=== PATIENT | female | born 1935 | race Caucasian/White ===

== ENCOUNTER 2016-06-08 14:20 | Emergency (ER) | payer MEDICARE ==
[~2016-06-08] VITALS: Ht 154.9 cm; Wt 58.1 kg
[~2016-06-08 14:20] MED LIST: ALEN70TA5 PO; AMIO200T2 PO; ASPI81TA44 PO; CALC600T4 PO; CITA40TA5 PO; DICL100G7 TP; FOLI1TAB16 PO; FURO40TA4 PO; GABA-586 PO; HYDR-2666 PO; IMIP25TA3 PO; LIDO700A4 TP; MELA3TAB PO; MELO-150 PO; METH25VI27 IJ; MIRA50TA PO; MORP15TA3 PO; MULT-245 PO; OXYB15TA4 PO; OXYC10TA32 PO; PILO5TAB PO; POLY17PO5 PO; POTA10CA53 PO; PRED5TAB PO; SERT50TA8 PO; SIMV40TA3 PO; SOLI5TAB PO; SULF500T7 PO
[2016-06-08] MEDS ORDERED: ONDANSETRON PF 4 MG/2 ML VIAL. IV ONE (14:45)
[2016-06-08] MEDS ORDERED: FENTANYL PF 100 MCG/2 ML VIAL. IV PRN (14:45)
[2016-06-08 15:54] LABS: BASO # 0.1 x10^3/uL (0.0-0.2); BASO % 1 % (0-3); EOS % 1 % (0-3); HEMATOCRIT 30.2 % (36.0-47.0); HEMOGLOBIN 9.4 g/dL (12.0-15.5); LYMPH # 1.3 x10^3/uL (1.0-4.8); LYMPH % 16 % (24-48); MEAN CORPUSCULAR HEMOGLOBIN 26 pg (25-35); MEAN CORPUSCULAR HGB CONC 31 g/dL (31-37); MEAN CORPUSCULAR VOLUME 84 fL (79-100); MONO % 5 % (0-9); NEUT % 77 % (31-73); PLATELET COUNT 151 x10^3/uL (140-400); RED BLOOD COUNT 3.59 x10^6/uL (3.50-5.40); RED CELL DISTRIBUTION WIDTH 19.2 % (11.5-14.5); WHITE BLOOD COUNT 7.8 x10^3/uL (4.0-11.0)
--- NOTE | 2016-06-08 16:01 | RAD ---
INDICATION: fall, dizzy prior COMPARISON: 07/25/2015 FINDINGS: Single view of chest obtained. Calcifications overlying the heart, could be valvular calcifications. Cardiac silhouette is mildly prominent. No definite focal airspace consolidation. Scoliotic curvature of the spine with degenerative changes. IMPRESSION: No definite focal consolidation.
[2016-06-08 16:06] LABS: CALCIUM 9.3 mg/dL (8.5-10.1); CREATININE 0.9 mg/dL (0.6-1.0); GFR 60.1; POTASSIUM 4.9 mmol/L (3.5-5.1)
--- NOTE | 2016-06-08 16:09 | RAD ---
INDICATION: fall, multiple joint pain, left wrist deformity COMPARISON: None. IMPRESSION: Left elbow: 3 views obtained. Difficult examination secondary to patient positioning. At the dorsal aspect of the radial head there is a small step-off seen. This could be secondary to an osteophyte but if there is point tenderness within the region a fracture is possible. There is also lucency at the radial aspect of the radial head on one image but this appears to extend outside of the bone therefore may be overlap of structures.
[2016-06-08 16:11] LABS: ALBUMIN 3.8 g/dL (3.4-5.0); ALBUMIN/GLOBULIN RATIO 1.2 (1.0-1.7); MAGNESIUM 1.9 mg/dL (1.8-2.4); TOTAL BILIRUBIN 0.4 mg/dL (0.2-1.0)
--- NOTE | 2016-06-08 16:15 | RAD ---
INDICATION: fall, multiple joint pain, left wrist deformity COMPARISON: None. IMPRESSION: Left shoulder: 3 views obtained without dislocation. Lucency through superior aspect of the acromion on. Could be vascular channel or prominent trabecula but nondisplaced fracture not excluded. Right shoulder: 3 views obtained without definite acute fracture or dislocation. Degenerative changes are identified. Small ossific density adjacent to the right acromion on could be from old injury or degenerative.
[2016-06-08 16:20] LABS: CKMB INDEX 3.1 % (0-4); CKMB MASS 1.4 ng/mL (0.0-3.6)
--- NOTE | 2016-06-08 16:28 | RAD ---
INDICATION: fall, unknown LOC, neck pain, headache COMPARISON: CT head from 10/12/2014 TECHNIQUE: Axial CT images obtained through the head and cervical spine without intravenous contrast. FINDINGS: No intracranial hemorrhage. No midline shift. Basal cisterns patents. Ventricles and sulci are globally prominent. Wright white differentiation is maintained without evidence of acute ischemia to large vessel territory. No acute osseous abnormality. Wall thickening left maxillary sinus. Scattered foci of low attenuation within the white matter. Cervical spine: No definite acute fracture or dislocation. Degenerative changes are identified. Grade 1 anterolisthesis of C3 on 4. There is a region of probable pleural scarring at the right lung apex with some calcifications within. Multilevel neural foraminal and central canal narrowing with the most severe level central canal narrowing likely C2-3 with a disc protrusion causing severe central canal narrowing and mass effect on spinal cord IMPRESSION: 1. No acute intracranial hemorrhage. 2. Scattered regions of low attenuation within the white matter. Non-specific in nature but frequently secondary to chronic small vessel ischemic disease. 3. Prominence of ventricles and sulci which is frequently secondary to age related volume loss. 4. Degenerative changes of the spine without definite acute fracture. 5. Suspected disc protrusion at C3-4 causing severe central canal narrowing and mass effect on spinal cord. Follow-up cervical spine MRI could be obtained to further evaluate 6. 5 mm nodule in left upper lung. If the patient has risk factors for neoplasm a follow-up CT could be obtained in 6-12 months to ensure no growth. PQRS Compliance Statement: One or more of the following individualized dose reduction techniques were utilized for this examination: 1. Automated exposure control 2. Adjustment of the mA and/or kV according to patient size 3. Use of iterative reconstruction technique
--- NOTE | 2016-06-08 16:28 | EKG ---
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
--- NOTE | 2016-06-08 16:31 | RAD ---
Bilateral wrists, 6 views, 06/08/2016: History: Fall, wrist deformities The bony structures are demineralized. There is deformity of the distal left radius compatible with old healed fracture. There is an old nonunited ulnar styloid fracture. There are moderate degenerative changes at the wrist. No acute fracture or dislocation is evident. There is an old, internally fixed, healed distal right radial fracture. There is an old right ulnar styloid fracture. There is considerable degenerative change at the right first CMC joint with periarticular calcifications. No acute right wrist fracture or dislocation is identified. IMPRESSION: 1. Bilateral wrist fractures. 2. Moderate degenerative change at both wrists. 3. No acute bony abnormality is detected.
--- NOTE | 2016-06-08 16:33 | RAD ---
INDICATION: fall, multiple joint pain, left wrist deformity COMPARISON: 07/25/2015 IMPRESSION: Right hip: 3 views obtained. Step-offs at the left superior and inferior pubic ramus. Likely secondary to the patient's known old fractures through the region with callus formation Partial visualization of hardware within the distal femur. Postoperative changes to lower lumbar spine partially seen. Calcific atherosclerosis. No definite right hip fracture.
--- NOTE | 2016-06-08 16:40 | PHYS DOC ---
Past Medical History Past Medical History: A-Fib, Anxiety, Arthritis, CHF, Constipation, Dementia, Depression, High Cholesterol, Pneumonia, Other Additional Past Medical Histor: chronic pain, rheumatoid arthritis, dry mouth, rls, insomnia, Past Surgical History: , Knee Replacement Additional Past Surgical Histo: multiple knee, back Additional Information: nonsmoker Alcohol Use: None Drug Use: None Adult General Chief Complaint Chief Complaint: WRIST PAIN HPI HPI Patient is a 80 year old female who presents from the [facility] with report of fall with left wrist pain with deformity. The patient states that she fell getting out of bed this morning. A staff member noticed left wrist deformity this afternoon and called EMS. The patient denies loss of consciousness. She does report feeling dizzy prior to falling. She does not have chest pain or shortness of breath. She cannot recall all of the events of the fall to provide a reliable history. She has dementia. She is alert and oriented in the emergency department. She is currently at the [facility] for rehab for a shoulder injury. Her PCP is Dr. Satish Naqvi. She was given Ativan and Montrose by the [facility] staff prior to EMS arrival. Review of Systems Review of Systems Constitutional: Denies fever or chills [] Eyes: Denies change in visual acuity, redness, or eye pain [] HENT: Denies nasal congestion or sore throat [] Respiratory: Denies cough or shortness of breath [] Cardiovascular: Denies chest pain, palpitations, or edema GI: Denies abdominal pain, vomiting, bloody stools or diarrhea. Reports nausea. : Denies dysuria or hematuria [] Musculoskeletal: Reports pain in bilateral wrists, left elbow, bilateral shoulders, right hip, and neck. Integument: Denies rash or skin lesions. Reports ecchymosis of the right shoulder, bilateral wrists. Denies laceration or abrasion. Neurologic: Denies loss of consciousness, focal weakness or sensory changes. Reports feeling dizzy prior to falling. Endocrine: Denies polyuria or polydipsia [] Current Medications Current Medications Current Medications Medications (Trade) Dose Ordered Sig/Donna Start Time Stop Time Status Last Admin Dose Admin Fentanyl Citrate (Fentanyl 2ml Vial) 50 mcg PRN Q15MIN PRN 06/08/16 14:45 06/08/16 17:57 DC Ondansetron HCl (Zofran) 4 mg 1X ONCE 2/16/17 14:45 06/08/16 14:54 DC Allergies Allergies Allergies Coded Allergies Type Severity Reaction Last Updated Verified morphine Adverse Reaction Intermediate 07/25/15 Yes Physical Exam Physical Exam Constitutional: Well developed, well nourished, no acute distress, non-toxic appearance. [] HENT: Normocephalic, atraumatic, bilateral external ears normal, oropharynx moist, no oral exudates, nose normal. [] Eyes: PERRLA, EOMI, conjunctiva normal, no discharge. [] Neck: Normal range of motion, midline neck tenderness, supple, no stridor. [] Cardiovascular: Heart rate regular rhythm, no murmur [] Lungs & Thorax: Bilateral breath sounds clear to auscultation without wheezes, rales, or rhonchi. Abdomen: Bowel sounds normal, soft, no tenderness, no masses, no pulsatile masses. [] Skin: Warm, dry, no erythema, no rash. There is ecchymosis of the right shoulder and bilateral wrists. There is no laceration or abrasion. Back: No tenderness, no CVA tenderness. [] Extremities: Bilateral wrist tenderness with radial deviation of the left wrist , no cyanosis, no clubbing, left wrist and elbow immobilized by splint applied by EMS, no edema. There is tenderness of both shoulders at the A/C joints with decreased ROM due to pain. There is tenderness of the right hip without pelvic instability. She has full ROM of the right hip, however with pain. The right leg is not shortened or rotated. There are 2+ radial and ulnar pulses bilaterally. 2+ DP pulses bilaterally in the feet. Less than 2 second capillary refill in the fingers and toes bilaterally. Light touch sensation intact in fingers and toes bilaterally. Neurologic: Alert and oriented X 3, normal motor function, normal sensory function, no focal deficits noted. CN II-XII grossly intact. Psychologic: Affect normal, judgement normal, mood normal. [] Current Patient Data Vital Signs Vital Signs Date Time Temp Pulse Resp B/P Pulse Ox O2 Delivery O2 Flow Rate FiO2 06/08/16 17:00 79 20 132/70 98 Room Air 06/08/16 14:26 98.2 98.2 Lab Values Laboratory Tests Test 06/08/16 15:40 White Blood Count 7.8x10^3/uL (4.0-11.0) Red Blood Count 3.59x10^6/uL (3.50-5.40) Hemoglobin 9.4g/dL (12.0-15.5) L Hematocrit 30.2% (36.0-47.0) L Mean Corpuscular Volume 84fL (79-100) Mean Corpuscular Hemoglobin 26pg (25-35) Mean Corpuscular Hemoglobin Concent 31g/dL (31-37) Red Cell Distribution Width 19.2% (11.5-14.5) H Platelet Count 151x10^3/uL (140-400) Neutrophils (%) (Auto) 77% (31-73) H Lymphocytes (%) (Auto) 16% (24-48) L Monocytes (%) (Auto) 5% (0-9) Eosinophils (%) (Auto) 1% (0-3) Basophils (%) (Auto) 1% (0-3) Neutrophils # (Auto) 6.0x10^3uL (1.8-7.7) Lymphocytes # (Auto) 1.3x10^3/uL (1.0-4.8) Monocytes # (Auto) 0.3x10^3/uL (0.0-1.1) Eosinophils # (Auto) 0.1x10^3/uL (0.0-0.7) Basophils # (Auto) 0.1x10^3/uL (0.0-0.2) Sodium Level 143mmol/L (136-145) Potassium Level 4.9mmol/L (3.5-5.1) Chloride Level 105mmol/L (98-107) Carbon Dioxide Level 28mmol/L (21-32) Anion Gap 10 (6-14) Blood Urea Nitrogen 10mg/dL (7-20) Creatinine 0.9mg/dL (0.6-1.0) Estimated GFR (Cockcroft-Gault) 60.1 BUN/Creatinine Ratio 11 (6-20) Glucose Level 140mg/dL (70-99) H Calcium Level 9.3mg/dL (8.5-10.1) Magnesium Level 1.9mg/dL (1.8-2.4) Total Bilirubin 0.4mg/dL (0.2-1.0) Aspartate Amino Transferase (AST) 20U/L (15-37) Alanine Aminotransferase (ALT) 18U/L (14-59) Alkaline Phosphatase 48U/L (46-116) Creatine Kinase 45U/L (26-192) Creatine Kinase MB (Mass) 1.4ng/mL (0.0-3.6) Creatine Kinase MB Relative Index 3.1% (0-4) Troponin I Quantitative < 0.017ng/mL (0.000-0.055) FP-Dyv-Q-Type Natriuretic Peptide 604pg/mL (0-449) H Total Protein 7.0g/dL (6.4-8.2) Albumin 3.8g/dL (3.4-5.0) Albumin/Globulin Ratio 1.2 (1.0-1.7) Laboratory Tests 06/08/16 15:40 Laboratory Tests 06/08/16 15:40 EKG EKG EKG at 1548. Heart rate 86 bpm. Accelerated junctional rhythm without acute ischemic changes or STEMI. Interpreted by Dr. Farah. Radiology/Procedures Radiology/Procedures REASON: fall, unknown LOC, neck pain, headache PROCEDURE: HEAD AND CERVICAL SPINE WO INDICATION: fall, unknown LOC, neck pain, headache COMPARISON: CT head from 10/12/2014 TECHNIQUE: Axial CT images obtained through the head and cervical spine without intravenous contrast. FINDINGS: No intracranial hemorrhage. No midline shift. Basal cisterns patents. Ventricles and sulci are globally prominent. Wright white differentiation is maintained without evidence of acute ischemia to large vessel territory. No acute osseous abnormality. Wall thickening left maxillary sinus. Scattered foci of low attenuation within the white matter. Cervical spine: No definite acute fracture or dislocation. Degenerative changes are identified. Grade 1 anterolisthesis of C3 on 4. There is a region of probable pleural scarring at the right lung apex with some calcifications within. Multilevel neural foraminal and central canal narrowing with the most severe level central canal narrowing likely C2-3 with a disc protrusion causing severe central canal narrowing and mass effect on spinal cord IMPRESSION: 1. No acute intracranial hemorrhage. 2. Scattered regions of low attenuation within the white matter. Non-specific in nature but frequently secondary to chronic small vessel ischemic disease. 3. Prominence of ventricles and sulci which is frequently secondary to age related volume loss. 4. Degenerative changes of the spine without definite acute fracture. 5. Suspected disc protrusion at C3-4 causing severe central canal narrowing and mass effect on spinal cord. Follow-up cervical spine MRI could be obtained to further evaluate 6. 5 mm nodule in left upper lung. If the patient has risk factors for neoplasm a follow-up CT could be obtained in 6-12 months to ensure no growth. REASON: fall, multiple joint pain, left wrist deformity PROCEDURE: WRIST BILAT 3V Bilateral wrists, 6 views, 06/08/2016: History: Fall, wrist deformities The bony structures are demineralized. There is deformity of the distal left radius compatible with old healed fracture. There is an old nonunited ulnar styloid fracture. There are moderate degenerative changes at the wrist. No acute fracture or dislocation is evident. There is an old, internally fixed, healed distal right radial fracture. There is an old right ulnar styloid fracture. There is considerable degenerative change at the right first CMC joint with periarticular calcifications. No acute right wrist fracture or dislocation is identified. IMPRESSION: 1. Bilateral wrist fractures. 2. Moderate degenerative change at both wrists. 3. No acute bony abnormality is detected. REASON: fall, multiple joint pain, left wrist deformity PROCEDURE: ELBOW LEFT 3V INDICATION: fall, multiple joint pain, left wrist deformity COMPARISON: None. IMPRESSION: Left elbow: 3 views obtained. Difficult examination secondary to patient positioning. At the dorsal aspect of the radial head there is a small step-off seen. This could be secondary to an osteophyte but if there is point tenderness within the region a fracture is possible. There is also lucency at the radial aspect of the radial head on one image but this appears to extend outside of the bone therefore may be overlap of structures. REASON: fall, multiple joint pain, left wrist deformity PROCEDURE: SHOULDER BILAT 2+V INDICATION: fall, multiple joint pain, left wrist deformity COMPARISON: None. IMPRESSION: Left shoulder: 3 views obtained without dislocation. Lucency through superior aspect of the acromion on. Could be vascular channel or prominent trabecula but nondisplaced fracture not excluded. Right shoulder: 3 views obtained without definite acute fracture or dislocation. Degenerative changes are identified. Small ossific density adjacent to the right acromion on could be from old injury or degenerative. REASON: fall, multiple joint pain, left wrist deformity PROCEDURE: HIP RIGHT 2V WITH PELVIS INDICATION: fall, multiple joint pain, left wrist deformity COMPARISON: 07/25/2015 IMPRESSION: Right hip: 3 views obtained. Step-offs at the left superior and inferior pubic ramus. Likely secondary to the patient's known old fractures through the region with callus formation Partial visualization of hardware within the distal femur. Postoperative changes to lower lumbar spine partially seen. Calcific atherosclerosis. No definite right hip fracture. REASON: fall, dizzy prior PROCEDURE: PORTABLE CHEST 1V INDICATION: fall, dizzy prior COMPARISON: 07/25/2015 FINDINGS: Single view of chest obtained. Calcifications overlying the heart, could be valvular calcifications. Cardiac silhouette is mildly prominent. No definite focal airspace consolidation. Scoliotic curvature of the spine with degenerative changes. IMPRESSION: No definite focal consolidation. Course & Med Decision Making Course & Med Decision Making Pertinent Labs and Imaging studies reviewed. (See chart for details) The patient is an 80 year old female who presents after reported fall at the [facility], where she is staying for rehab for a rotator cuff injury. Upon arrival to the emergency department, the left wrist is in a temporary splint due to apparent deformity. The patient states that she fell getting out of bed. She does not think that she lost consciousness. She did feel dizzy prior to falling. On exam, there does appear to be deformity of the left wrist. She also has tenderness in the left elbow, both shoulders, and the right hip. She has midline C-spine tenderness reports headache. X-ray of the wrists does not show any acute fractures. There is questionable fracture of the left radial head. On reexamination, the patient does not have any tenderness over the radial head. She is provided with a sling for comfort for the left elbow. There are no other acute fractures or dislocations seen on x-rays. There are no acute findings on CT of the head or C-spine. There are no significant laboratory abnormalities. EKG is nonischemic. The patient's daughter arrived at bedside after initial evaluation. The patient usually lives with her daughter, although she is currently at the [facility]. The patient's daughter is questioning whether she actually fell. The patient has a history of dementia and has been more confused this past week after an upsetting event. The patient apparently told a staff member at the [facility] that she had fallen. They noticed a deformity in her left wrist as well as some bruising and called EMS. The patient's daughter states that she has not fallen in over a year. She also reports that the patient does not have the strength to get up if she had fallen. The fact that the patient was not found on the floor makes her especially suspicious about a fall having occurred. Patient's pain is controlled with Ativan and codeine given by the [facility] prior to her arrival in the emergency department. Patient course was discussed with Dr. Farah. He agrees the patient is stable for discharge, however may be admitted for pain control and PT/OT. I offered admission to the patient and her daughter. They preferred to have [facility] at [facility], where she can continue to be monitored and received PT/ OT there. They both understand that if the patient's condition changes, she should return to the emergency department for evaluation. The patient sees Dr. Rivas for orthopedics. Her daughter will schedule an appointment with Dr. Rivas for next week for evaluation of her left elbow. The patient and her daughter are both in agreement with plan for discharge from the emergency department to [facility]. Dragon Disclaimer Dragon Disclaimer This electronic medical record was generated, in whole or in part, using a voice recognition dictation system. Departure Departure Impression: Primary Impression: Elbow pain, left Additional Impressions: Wrist pain Hip pain, right Disposition: 03 TRANSFER SNF ([facility]) Condition: STABLE Referrals: SATISH NAQVI (PCP) Patient Instructions: Elbow Injury-Brief, Fall Prevention and Home Safety, Easy -to-Read, Hip Pain, Wrist Pain, [id number] Additional Instructions: There was a possible break in the left radial head, near the elbow. Please wear the provided sling to help decrease movement in the elbow. Please follow-up with your orthopedic doctor, listed below, within the next week for evaluation of the left elbow. Please follow-up with your primary care doctor in the next 2-3 days, sooner if concerns. Return to emergency department if you have chest pain, shortness of breath, headache, dizziness, or other new or concerning symptoms. Scripts Hydrocodone/Apap 5-325 (Montrose 5-325 Tablet)1 Each Tablet1 Tab PO PRN Q6HRS PRN PAIN #20 TAB Prov:EMERALD WYATT 06/08/16 Problem Qualifiers Additional Impressions: Wrist pain Laterality: bilateral Qualified Code: M25.531 - Pain in right wrist EMERALD WYATT Jun 08, 2016 16:40
[2016-06-08 17:00] VITALS: BP 132/70
[2016-06-08] MEDS ORDERED: HYDR-971 PO (17:07)
== END 2016-06-08 17:57 ==
LOC: ER 14:20
DX: M25.522 Pain in left elbow (principal); M25.532 Pain in left wrist; M25.531 Pain in right wrist; M25.551 Pain in right hip; M25.512 Pain in left shoulder; M25.511 Pain in right shoulder; M54.2 Cervicalgia; R42 Dizziness and giddiness; F03.90 Unspecified dementia, unspecified severity, without behavioral disturbance, psychotic disturbance, mood disturbance, and anxiety; F41.9 Anxiety disorder, unspecified; I48.91 Unspecified atrial fibrillation; I50.9 Heart failure, unspecified; F32.9 Major depressive disorder, single episode, unspecified; E78.00 Pure hypercholesterolemia, unspecified; M06.9 Rheumatoid arthritis, unspecified; G47.00 Insomnia, unspecified; G89.29 Other chronic pain; G25.81 Restless legs syndrome; Z87.01 Personal history of pneumonia (recurrent); Z96.659 Presence of unspecified artificial knee joint; W06.XXXA Fall from bed, initial encounter; Y93.89 Activity, other specified; Y92.89 Other specified places as the place of occurrence of the external cause; Y99.8 Other external cause status
CPT/HCPCS: 36415; 70450; 71010; 72125; 73030; 73080; 73110; 73502; 80053; 82553; 83735; 83880; 84484; 85027; 93005; 99285-25